=== PATIENT | male | born 1985 | race Caucasian/White ===

== ENCOUNTER 2020-04-10 06:32 | Emergency (ER) | payer BC ==
[~2020-04-10] VITALS: Ht 177.8 cm; Wt 76.7 kg
[2020-04-10 06:34] VITALS: Ht 177.8 cm; Wt 76.7 kg
[2020-04-10 07:24] LABS: CALCIUM 9.8 mg/dL (8.5-10.1); CHLORIDE SERUM 99 mmol/L (98-107); CREATININE SERUM 1.3 mg/dL (0.7-1.3); GFR1 > 60 mL/min; GLUCOSE SERUM 129 mg/dL (74-106); SODIUM SERUM 138 mmol/L (136-145)
[2020-04-10 07:29] LABS: ALKALINE PHOSPHATASE 65 U/L (46-116); ALT/SGPT 29 U/L (16-63); AST/SGOT 22 U/L (15-37); LIPASE 135 IU/L (73-393)
[2020-04-10 07:31] LABS: ALBUMIN 5.2 g/dL (3.4-5.0); TOTAL PROTEIN, SERUM 8.5 g/dL (6.4-8.2)
[2020-04-10 07:58] LABS: BASOPHIL % 0.3 % (0-2); RED CELL DISTRIBUTION WIDTH 12.8 % (11.5-14.5)
[2020-04-10 08:02] LABS: AMPHETAMINE QUAL UR NONE DETECTED (See below)
[2020-04-10 08:22] LABS: PLATELET COUNT 429 x10^3mcL (130-400)
[2020-04-10 09:14] VITALS: BP 126/82
== END 2020-04-10 09:18 | disposition home or self-care (01) ==
LOC: ED 06:32
PROVIDERS: Emergency Medicine
DX: K31.84 Gastroparesis (principal)
CPT/HCPCS: J1200; J1885; J2270; J2765; J7030

== ENCOUNTER 2020-04-15 07:54 | Emergency (ER) | payer BC ==
[~2020-04-15] VITALS: Ht 177.8 cm; Wt 76.7 kg
[2020-04-15 08:01] VITALS: Ht 177.8 cm; Wt 76.7 kg
[2020-04-15 08:56] LABS: BASOPHIL % 0.4 % (0-2); PLATELET COUNT 385 x10^3mcL (130-400); RED CELL DISTRIBUTION WIDTH 12.6 % (11.5-14.5)
[2020-04-15 09:27] LABS: ALBUMIN 4.8 g/dL (3.4-5.0); ALKALINE PHOSPHATASE 52 U/L (46-116); ALT/SGPT 26 U/L (16-63); AST/SGOT 19 U/L (15-37); BILIRUBIN TOTAL 0.9 mg/dL (0.20-1.00); CALCIUM 9.3 mg/dL (8.5-10.1); CARBON DIOXIDE 26.4 mmol/L (21-32); CHLORIDE SERUM 97 mmol/L (98-107); CREATININE SERUM 1.1 mg/dL (0.7-1.3); GFR1 > 60 mL/min; GLUCOSE SERUM 125 mg/dL (74-106); LIPASE 127 IU/L (73-393); POTASSIUM SERUM 3.1 mmol/L (3.5-5.1); SODIUM SERUM 137 mmol/L (136-145); TOTAL PROTEIN, SERUM 7.7 g/dL (6.4-8.2)
[2020-04-15 12:00] VITALS: BP 146/94
== END 2020-04-15 12:00 | disposition home or self-care (01) ==
LOC: ED 07:54
PROVIDERS: Emergency Medicine
DX: K31.84 Gastroparesis (principal)
CPT/HCPCS: J1885; J2270; J2765; J3010; J7030; Q0092

== ENCOUNTER 2020-04-19 06:38 | Emergency (ER) | payer BC ==
[~2020-04-19] VITALS: Ht 177.8 cm; Wt 76.2 kg
[2020-04-19 06:46] VITALS: Ht 177.8 cm; Wt 76.2 kg
[2020-04-19 07:33] LABS: BASOPHIL % 0.6 % (0-2); PLATELET COUNT 355 x10^3mcL (130-400); RED CELL DISTRIBUTION WIDTH 12.1 % (11.5-14.5)
[2020-04-19 07:57] LABS: CALCIUM 8.7 mg/dL (8.5-10.1); CARBON DIOXIDE 32.6 mmol/L (21-32); CHLORIDE SERUM 100 mmol/L (98-107); CREATININE SERUM 1.1 mg/dL (0.7-1.3); GFR1 > 60 mL/min; GLUCOSE SERUM 113 mg/dL (74-106); POTASSIUM SERUM 3.6 mmol/L (3.5-5.1); SODIUM SERUM 137 mmol/L (136-145)
[2020-04-19 08:02] LABS: ALBUMIN 4.3 g/dL (3.4-5.0); ALKALINE PHOSPHATASE 49 U/L (46-116); ALT/SGPT 30 U/L (16-63); AMYLASE 54 U/L (25-115); AST/SGOT 20 U/L (15-37); BILIRUBIN TOTAL 0.86 mg/dL (0.20-1.00); LIPASE 143 IU/L (73-393)
[2020-04-19 09:42] VITALS: BP 133/88
== END 2020-04-19 09:42 | disposition home or self-care (01) ==
LOC: ED 06:38
PROVIDERS: Specialist
DX: K31.84 Gastroparesis (principal)
CPT/HCPCS: J1885; J2405; J3010; J3490; J7030